=== PATIENT | female | born 1985 | race Caucasian/White ===

== ENCOUNTER 2019-11-24 01:47 | Emergency (ER) | payer OTHER ==
[~2019-11-24] VITALS: Ht 167.6 cm; Wt 56.8 kg
[~2019-11-24 01:47] MED LIST: DOCU-131 PO; IBUP-1222 PO
[2019-11-24 01:50] VITALS: BP 123/89
== END 2019-11-24 02:17 | disposition home or self-care (01) ==
LOC: ED 02:00
DX: M79.645 Pain in left finger(s) (principal); Z20.9 Contact with and (suspected) exposure to unspecified communicable disease
CPT/HCPCS: 36415; 86705; 86706; 86803; 87340; 87806; 99283; G0475